=== PATIENT | female | born 1990 | race Caucasian/White ===

== ENCOUNTER 2020-12-01 15:52 | Outpatient (CLI) | payer OTHER ==
[2020-12-01 18:18] LABS: CALCIUM 9.5 mg/dL (8.5-10.3); CREATININE 0.8 mg/dL (0.4-1.0); POTASSIUM 3.6 mmol/L (3.5-5.0)
[2020-12-01 18:26] LABS: HCG,QUALITATIVE BLOOD NEGATIVE
== END 2020-12-01 15:53 | disposition home or self-care (01) ==
LOC: LAB.N 15:52
PROVIDERS: ATTEND Family Medicine
DX: L70.9 Acne, unspecified (principal)
CPT/HCPCS: 36415; 80048; 84703